=== PATIENT | male | born 1970 | race Caucasian/White ===

== ENCOUNTER 2025-03-03 14:59 | Emergency (ER) | payer BC, OTHER ==
[2025-03-03] MEDS ORDERED: DIAZEPAM 5 MG TABLET ONE (15:37)
[2025-03-03] MEDS ORDERED: HYDROCODONE/APAP 5/325 MG TAB ONE (15:37)
--- NOTE | 2025-03-03 16:40 | RAD REPORT ---
EXAMINATION: Spine Lumbar Wo Con CLINICAL INDICATION: Male, 54 years old. LOWER BACK PAIN TECHNIQUE: Axial CT images were obtained through the lumbar spine in soft tissue and bone windows wit hout intravenous contrast. Coronal and Sagittal reformatted images were created from the data set. One or more of the following dose reduction techniques were used: Automated exposure control, adjustm ent of the mA and/ or kV according to patient size, and/or iterative reconstruction. Unless otherwise specified, incidental findings do not require dedicated imaging follow-up. [id number]. COMPARISON: No prior exams FINDINGS: For purposes of this dictation, it is assumed that there are 5 non rib-bearing lumbar type vertebrae, and the most caudal fully segmented lumbar vertebra is labeled L5. ALIGNMENT: The lumbar spine demonstrates normal alignment without scoliosis or spondylolisthesis. BONES: No significant soft tissue abnormalities. No aggressive osseous lesions. DEGENERATIVE: Mild diffuse disc height loss. Mild facet degenerative changes. No high-grade central s payam stenosis. Mild central spinal stenosis is likely present at L2-3 and L3-4. SOFT TISSUE: Right external iliac artery stent. Atherosclerosis. Infrarenal abdominal aortic aneurysm which is partially imaged and measures at least 4.7 cm. There is some trace stranding around the aneurysm. IMPRESSION: No acute lumbar spine abnormalities. Infrarenal abdominal aortic aneurysm that is likely partially imaged but measures at least 4.7 cm. Tr roscoe stranding around the aneurysm. Though no evidence of rupture, and impending rupture would be difficult to exclude. Suggest further evaluation with CTA as well as vascular surgery consultation. N o prior imaging is available to determine stability. The findings were communicated to Magda Peoples on 03/03/2025 4:37 PM.
--- NOTE | 2025-03-03 17:28 | RAD REPORT ---
EXAM: Angio Aorta For Dissection CLINICAL INDICATION: Male, 54 years evaluate AAA TECHNIQUE: CTA of the aorta was obtained including the chest, abdomen and pelvis, with IV contrast, a s per department protocol. Axial, sagittal and coronal reconstructions were obtained. Post-processing was applied at the acquisition scanner with concurrent physician supervision which in cludes 3D reconstructions, MIPs, volume rendered images and/or shaded surface rendering. One or more of the following dose reduction techniques were used: Automated exposure control, adjustment of the mA and/or kV according to the patient size, and/or iterative reconstruction. Unless otherwise specified, incidental findings do not require dedicated imaging follow-up. [id number]. COMPARISON: No prior exam. FINDINGS: ---THORAX--- LOWER NECK AND CHEST WALL: Visualized thyroid gland and soft tissues are normal. MEDIASTINUM AND LYMPH NODES: No mediastinal mass or fluid collection. Normal size mediastinal, hilar, and axillary lymph nodes. THORACIC AORTA: No thoracic aortic aneurysm. PULMONARY ARTERIES: Caliber is within normal limits. HEART: Normal heart size. No coronary calcifications.No significant pericardial effusion. LUNGS AND AIRWAYS: Airways are clear. No evidence of airspace or interstitial process. No suspicious and/or stable pulmonary nodules. PLEURA: No pleural effusion. No pneumothorax. ---ABDOMEN/PELVIS--- UPPER GI: No significant abnormality. LIVER: Hepatic steatosis, but otherwise unremarkable. GALLBLADDER/BILE DUCTS: No biliary ductal dilatation.? PANCREAS: No mass, ductal dilation, or tim-pancreatic fluid. SPLEEN: Unremarkable. ADRENALS: Adrenal thickening without discrete mass. KIDNEYS AND URETERS: No hydronephrosis.No suspicious renal mass. ABDOMINAL AORTA AND OTHER VESSELS: Infrarenal abdominal aortic aneurysm measuring 4.8 cm. There is so me motion artifact which results in some indistinctness of the wall of the aneurysm. At the levels without motion, the wall does appear sharp without findings to suggest a leaking aneurysm.. For manag ement of fusiform aneurysmal abdominal aortas: Recommend follow-up every 6 months and recommend vascular consultation or continued care with a vascu lar specialist. Note: For AAA enlargement of > 0.5 cm in 6 months or > 1 cm in 1 year, recommend vascular consultat ion. References: J Am Adrien Radiol 2013; 10(10):789-794; J Vasc Surg. 2018; 67:2-77 Right SFA stent is occluded. 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 Patent right exte rnal iliac stent. PERITONEUM: No abnormal free fluid. No free air. LYMPH NODES: No pathologic lymphadenopathy. ABDOMINAL WALL: Fat containing inguinal hernias. SMALL BOWEL/COLON: Small bowel has normal course and caliber. No colonic wall thickening or pericolon ic inflammatory changes. URINARY BLADDER: Underdistended but grossly unremarkable. REPRODUCTIVE ORGANS: No pathologic process. ---COMBINED--- MUSCULOSKELETAL: Multilevel degenerative changes in the spine. No acute fracture. ADDITIONAL FINDINGS: None. IMPRESSION: Infrarenal aortic aneurysm measuring up to 4.8 cm. Some indistinctness of the wall of the aneurysm on the CT on the prior L-spine CT and on the CT related to motion. No findings that would suggest leaking or unstable aneurysm at this time. Follow up recommendations provided above.
--- NOTE | 2025-03-03 17:45 | EDPHYS ---
Physician Documentation [facility] Name: Shiraz Beckford Age: 54 yrs Sex: Male : 1970 Arrival Date: 03/03/2025 Time: 14:59 Bed 5 Private MD: NIKI Physician Michael Thomas HPI: 03/03 15:32 This 54 yrs old Male presents to ER via Unassigned with complaints of Low Back Pain. kb 15:32 Pt is a 54 year old male who presents for low back pain that started 3 days ago. States kb he has chronic back issues and an xray done last week. states he was prescribed diclofenac and methocarbamol that have had no effect. States his pain started 3 days ago after lifting a window unit. States he has a knot to left side of low back and that is where the pain is the worst. Denies numbness, tingling, bowel/bladder issues. Historical: - Allergies: 15:31 PENICILLINS; ll1 - PMHx: 15:31 back problems; Hypertensive disorder; Diabetes mellitus; AAA; ll1 - PSHx: 15:31 stents R leg; ll1 - Immunization history:: Adult Immunizations. - Infectious Disease History:: Denies. - Social history:: Smoking status: Patient reports the use of cigarette tobacco products, smokes one-half pack cigarettes per day, Reported history of juuling and/or vaping. ROS: 15:32 Constitutional: As per HPI kb Exam: 15:32 Constitutional: This is a well developed, well nourished patient who is awake, alert, kb and in no acute distress. Head/Face: Normocephalic, atraumatic. ENT: Moist Mucous membranes Cardiovascular: Regular rate Respiratory: Respirations even and unlabored. No increased work of breathing. Talking in full sentences Skin: Warm, dry with normal turgor. Normal color. MS/ Extremity: Pulses equal, no cyanosis. Neurovascular intact. Full, normal range of motion. Neuro: Awake and alert, GCS 15, oriented to person, place, time, and situation. 15:32 Back: pain, that is moderate, of the lumbar area, left low back and left mid back, ROM is painful, normal spinal alignment noted, CVA tenderness, is absent, vertebral tenderness, is appreciated at L1, L2, L3 and L4, Vital Signs: 15:33 BP 107 / 79; Pulse 92; Resp 17; Temp 97.7; Pulse Ox 97% ; Weight 94.8 kg; Height 6 ft. ll1 0 in. ; Pain 9/10; 17:55 BP 103 / 68; Pulse 70; Resp 16; Pulse Ox 98% ; db 15:33 Body Mass Index 28.35 (94.80 kg, 182.88 cm) ll1 15:33 Pain Scale: Adult ll1 MDM: 15:29 Medical Screening Exam initiated kb 15:34 Differential diagnosis: arthritis, strain, fracture, contusion, Herniated disc. Data kb reviewed: vital signs, nurses notes. External Records Reviewed: Outpatient radiology: lumbar spine xray done last week reviewed, arthritic changes. 16:51 External Records Reviewed: Outpatient labs: labs reviewed from 02/21/25. Creatinine 1.00. kb 17:28 Discussion of test interpretation with radiology: I had a discussion with radiology kb regarding a test interpretation. Discussed findings on CT lumbar spine with Dr Brewster who recommends CTA. 17:41 Consideration of Admission/Observation Escalation of care including kb admission/observation considered. transfer considered but no indication for emergency intervention identified on CTA (confirmed with Dr Brewster). Pt has appt with workday senior associate on for heart cath and another scan of aorta. States he was aware of the AAA and the most recent measurement was 4.7. Counseling: I had a detailed discussion with the patient and/or guardian regarding the historical points, exam findings, and any diagnostic results supporting the discharge/admit diagnosis, lab results, radiology results, the need for outpatient follow up, a workday senior associate, a family practitioner, to return to the emergency department if symptoms worsen or persist or if there are any questions or concerns that arise at home. 17:52 Test considered but Not performed: Labs: CBC, BMP considered and ordered but patient kb states he just had them done on the first. Reviewed his labs from his TMS.. 03/03 15:26 Order name: CT Lumbar Spine Wo Con; Complete Time: 16:41 dd2 03/03 16:36 Order name: CT Aorta for Dissection; Complete Time: 17:29 kb 03/03 16:36 Order name: IV Start; Complete Time: 16:56 kb Administered Medications: 15:38 Drug: Diazepam PO 5 mg PO once Route: PO; ll1 18:06 Follow up: Response: No adverse reaction db 15:39 Drug: HYDROcodone-acetaminophen PO 5 mg-325 mg 1 tabs PO once {Note: pain 9/10 RASS 0.} ll1 Route: PO; 18:05 Follow up: Response: No adverse reaction db Disposition Summary: 03/03/25 17:44 Discharge Ordered Notes: Location: Home kb Condition: Stable kb Diagnosis - Low back pain kb - INFRARENAL AORTIC ANEURYSM MEASURING UP TO 4.8 CM kb Followup: kb - With: Emergency Department - When: As needed - Reason: Worsening of condition Followup: kb - With: Private Physician - When: 2 - 3 days - Reason: Recheck today's complaints, Continuance of care, Re-evaluation by your physician Discharge Instructions: - Discharge Summary Sheet kb - Acute Back Pain, Adult kb - Chronic Back Pain, [id number] kb Forms: - Medication Reconciliation Form kb - Antibiotic Education kb - Prescription Opioid Use kb - Patient Portal Instructions kb - Leadership Thank You Letter kb Prescriptions: - Tramadol 50 mg Oral Tablet - take 1 tablet ORAL route every 8 hours as needed; 12 tablet; Refills: 0, kb Product Selection Permitted Addendum: 03/06/2025 14:36 Co-signature as Attending Physician, Michael Thomas MD I agree with the assessment and c pedro plan of care. Signatures: Dispatcher [employer] Magda Howard, LEE-C ALLERGY AND IMMUNOLOGY CHIEF-Michael Jeffers MD MD cha Lewis, Lynsay, RN RN ll1 Courtney Soni RN RN db
--- NOTE | 2025-03-03 17:45 | ER ---
Nurse's Notes [facility] Name: Shiraz Beckford Age: 54 yrs Sex: Male : 1970 Arrival Date: 03/03/2025 Time: 14:59 Bed 5 Private MD: Diagnosis: Low back pain;INFRARENAL AORTIC ANEURYSM MEASURING UP TO 4.8 CM Presentation: 03/03 15:33 Chief complaint: Patient states: Lower back pain for 3 days. Coronavirus screen: Client ll1 denies travel out of the [place] in the last 14 days. At this time, the client does not indicate any symptoms associated with coronavirus-19. Ebola Screen: Patient denies travel to an Ebola-affected area in the 21 days before illness onset. Initial Sepsis Screen: Does the patient meet any 2 criteria? No. Patient's initial sepsis screen is negative. Does the patient have a suspected source of infection? No. Patient's initial sepsis screen is negative. Risk Assessment: Do you want to hurt yourself or someone else? Patient reports no desire to harm self or others. Onset of symptoms was March 01, 2025. 15:33 Method Of Arrival: Ambulatory ll1 15:33 Acuity: NEYDA 3 ll1 Triage Assessment: 15:33 General: Appears uncomfortable, Behavior is calm, cooperative, appropriate for age. ll1 Pain: Complains of pain in left low back Quality of pain is described as aching. Musculoskeletal: Circulation, motion, and sensation intact. Capillary refill < 3 seconds, in bilateral toes. Reports pain in left mid back and left low back. Historical: - Allergies: 15:31 PENICILLINS; ll1 - PMHx: 15:31 back problems; Hypertensive disorder; Diabetes mellitus; AAA; ll1 - PSHx: 15:31 stents R leg; ll1 - Immunization history:: Adult Immunizations. - Infectious Disease History:: Denies. - Social history:: Smoking status: Patient reports the use of cigarette tobacco products, smokes one-half pack cigarettes per day, Reported history of juuling and/or vaping. Screenin:04 [facility] ED Fall Risk Assessment (Adult) History of falling in the last 3 months, db including since admission No falls in past 3 months (0 pts) Confusion or Disorientation No (0 pts) Intoxicated or Sedated No (0 pts) Impaired Gait No (0 pts) Mobility Assist Device Used No (0 pt) Altered Elimination No (0 pt) Score/Fall Risk Level 0 - 2 = Low Risk Oriented to surroundings, Maintained a safe environment. Abuse screen: Denies threats or abuse. Denies injuries from another. Nutritional screening: No deficits noted. Tuberculosis screening: No symptoms or risk factors identified. Assessment: 16:56 Reassessment: No changes from previously documented assessment. Patient and/or family ll1 updated on plan of care and expected duration. Pain level reassessed. 18:04 Reassessment: Patient appears in no apparent distress at this time. Patient and/or db family updated on plan of care and expected duration. Pain level reassessed. Patient is alert, oriented x 3, equal unlabored respirations, skin warm/dry/pink. Vital Signs: 15:33 BP 107 / 79; Pulse 92; Resp 17; Temp 97.7; Pulse Ox 97% ; Weight 94.8 kg; Height 6 ft. ll1 0 in. ; Pain 9/10; 17:55 BP 103 / 68; Pulse 70; Resp 16; Pulse Ox 98% ; db 15:33 Body Mass Index 28.35 (94.80 kg, 182.88 cm) ll1 15:33 Pain Scale: Adult ll1 ED Course: 15:05 Patient arrived in ED. im 15:09 Magda Peoples FNP-C [facility]. kb 15:09 Michael Thomas MD is Attending Physician. kb 15:31 Arm band placed on. ll1 15:33 Triage completed. ll1 16:04 CT Lumbar Spine Wo Con In Process Unspecified. EDMS 16:42 Radiology exam delayed due to lab results not completed at this time. (BUN/Creatinine) jc4 IV insertion attempt and/or patient not having appropriate IV at this time. 16:55 Patient placed in an exam room, on a stretcher. ll1 16:55 Inserted saline lock: 20 gauge in left antecubital area, using aseptic technique. ll1 Flushed with 10 mL NS. 16:56 Michael Green, RN is Primary Nurse. bp 17:12 CT Aorta for Dissection In Process Unspecified. EDMS 18:04 Patient has correct armband on for positive identification. Bed in low position. Call db light in reach. Side rails up X 1. Provided Education on: DISCHARGE AND FOLLOWUP. Pulse ox on. NIBP on. Warm blanket given. Pillow given. 18:04 No provider procedures requiring assistance completed. IV discontinued, intact, db bleeding controlled, No redness/swelling at site. Administered Medications: 15:38 Drug: Diazepam PO 5 mg PO once Route: PO; ll1 18:06 Follow up: Response: No adverse reaction db 15:39 Drug: HYDROcodone-acetaminophen PO 5 mg-325 mg 1 tabs PO once {Note: pain 9/10 RASS 0.} ll1 Route: PO; 18:05 Follow up: Response: No adverse reaction db Medication: 18:04 VIS not applicable for this client. db Outcome: 17:44 Discharge ordered by . yenifer 18:04 Discharged to home ambulatory, db 18:04 Condition: stable 18:04 Discharge instructions given to patient, Instructed on discharge instructions, follow up and referral plans. Prescriptions given X 1, 18:06 Patient left the ED. db Signatures: Dispatcher [employer] EDMS Magda Peoples, KARTIKC [employer]OTE[employer] EQUIPMENT TECHNICIAN-Michael Jones, RN RN Fadumo Schmidt RN RN ll1 Courtney Soni, RN RN db Aisha Garcia Justin [email or web address]
[2025-03-03 19:14] VITALS: BP 103/68; O2SAT 98
== END 2025-03-03 18:06 | disposition home or self-care (01) ==
LOC: ER 14:59
DX: I71.43 Infrarenal abdominal aortic aneurysm, without rupture (principal); F17.210 Nicotine dependence, cigarettes, uncomplicated
CPT/HCPCS: 72131; 71275; 74175; 99284; Q9967